=== PATIENT | female | born 1970 | race Caucasian/White ===

== ENCOUNTER 2016-06-17 21:14 | Emergency (ER) | payer OTHER ==
[~2016-06-17] VITALS: Ht 172.7 cm; Wt 56.9 kg
[2016-06-17 21:15] VITALS: BP 137/84
== END 2016-06-17 22:10 | disposition home or self-care (01) ==
LOC: ED 22:05
DX: L03.011 Cellulitis of right finger (principal)
CPT/HCPCS: 99283

== ENCOUNTER 2017-05-20 10:20 | Inpatient (IN) | payer OTHER ==
[~2017-05-20] VITALS: Ht 172.7 cm; Wt 58.0 kg
[2017-05-20 11:34] LABS: BASOPHILS # (AUTO) 0.04 x10^3/uL (0-0.1); BASOPHILS % (AUTO) 1 % (0-1); EOSINOPHILS # (AUTO) 0.08 x10^3/uL (0-0.4); EOSINOPHILS % (AUTO) 1 % (1-7); LYMPHOCYTES # (AUTO) 2.16 x10^3/uL (1-3.4); LYMPHOCYTES % (AUTO) 38 % (22-44); MD NO; MEAN CORPUSCULAR HEMOGLOBIN 33.1 pg (27.0-34.8); MEAN CORPUSCULAR HGB CONC 34.3 g/dL (32.4-35.8); MEAN CORPUSCULAR VOLUME 96.5 fL (80-100); MEAN PLATELET VOLUME 9.6 fL (7.4-10.4); MONOCYTES # (AUTO) 0.46 x10^3/uL (0.2-0.8); MONOCYTES % (AUTO) 8 % (2-9); NEUTROPHILS # (AUTO) 2.98 x10^3/uL (1.8-6.8); NEUTROPHILS % (AUTO) 52 % (42-75); PLATELET COUNT 228 x10^3/uL (130-400); RED BLOOD COUNT 4.27 x10^6/uL (3.82-5.3); RED CELL DISTRIBUTION WIDTH 13.3 % (9.6-15.2)
[2017-05-20 11:46] LABS: ALBUMIN 3.8 g/dL (3.4-5.0); ANION GAP 7 mmol/L (5-15); CALCIUM 8.8 mg/dL (8.5-10.1); CHLORIDE 108 mmol/L (98-107); CREATININE 0.89 mg/dL (0.55-1.02)
[2017-05-20 11:49] LABS: TROPONIN I < 0.015 ng/mL (0.000-0.045)
[2017-05-20] MEDS ORDERED: SODIUM CHLORIDE 0.9% 1,000ML IVBOLUS ONE (12:00)
[2017-05-20] MEDS ORDERED: SODIUM CHLORIDE FLUSH 10ML SYR IVF ONE (12:00)
[2017-05-20] MEDS ORDERED: DONE10TA7 PO (12:53)
[2017-05-20] MEDS ORDERED: CLON0.5T PO (12:53)
[2017-05-20] MEDS ORDERED: AMIT25TA PO (12:53)
[2017-05-20] MEDS ORDERED: OMNIPAQUE 350 MG/ML, 100ML BOTTLE ONE (13:22)
[2017-05-20] MEDS ORDERED: ASPIRIN 81 MG TABLET CHEW PO ONE (14:00)
[2017-05-20] MEDS ORDERED: HYDROcodone/APAP 5/325 TABLET PO PRN (14:30)
[2017-05-20] MEDS ORDERED: POLYETHYLENE GLYCOL 17 GM PACKET PO PRN (14:30)
[2017-05-20] MEDS ORDERED: DOCUSATE 100 MG CAPSULE PO PRN (14:30)
[2017-05-20] MEDS ORDERED: ACETAMINOPHEN 325 MG TABLET PO PRN (14:30)
[2017-05-20] MEDS ORDERED: ONDANSETRON 2MG/ML, 2ML IVPush PRN (14:30)
[2017-05-20] MEDS ORDERED: morphine SULFATE 10 MG/ML, 1ML IVPush PRN (14:30)
[2017-05-20 16:22] VITALS: BP 93/65
[2017-05-20] MEDS: ENOXAPARIN 40 MG/0.4 ML SQ SCH (17:04)
[2017-05-20] MEDS: SODIUM CHLORIDE FLUSH 10ML SYR IVF SCH (21:00)
[2017-05-20] MEDS ORDERED: AMITRIPTYLINE 25 MG TABLET PO SCH (21:00)
[2017-05-20 22:00] VITALS: BP 93/58
[2017-05-21 02:19] VITALS: BP 87/50
[2017-05-21] MEDS: SODIUM CHLORIDE FLUSH 10ML SYR IVF SCH (07:27)
[2017-05-21 07:30] VITALS: BP 93/55
[2017-05-21] MEDS ORDERED: DONEPEZIL 10 MG TABLET PO SCH (09:00)
[2017-05-21 13:50] VITALS: BP 90/53
[2017-05-21] MEDS: ENOXAPARIN 40 MG/0.4 ML SQ SCH (14:30)
== END 2017-05-21 18:40 | disposition home or self-care (01) | DRG 74 ==
LOC: ED 12:23 → EDIP 12:24 → ED 12:36 → 5SO 16:07
PROVIDERS: ADMIT Urology; ATTEND Family Medicine
DX: G90.9 Disorder of the autonomic nervous system, unspecified (principal); I48.91 Unspecified atrial fibrillation; Z96.651 Presence of right artificial knee joint; M06.9 Rheumatoid arthritis, unspecified; Z79.82 Long term (current) use of aspirin; Z82.49 Family history of ischemic heart disease and other diseases of the circulatory system
CPT/HCPCS: 36415; 71045; 71275; 80048; 82040; 83880; 84443; 84484; 85025; 93005; 93306; 99285; J1650; Q9967; J7030

== ENCOUNTER → 2017-08-06 | Outpatient (CLI) | payer OTHER ==
[~2017-08-06] MED LIST: AMIT25TA PO; CLON0.5T PO; DONE10TA7 PO
== END | disposition home or self-care (01) ==
LOC: CFH 14:31
PROVIDERS: ATTEND Registered Nurse
DX: M35.01 Sjogren syndrome with keratoconjunctivitis (principal); G43.909 Migraine, unspecified, not intractable, without status migrainosus
CPT/HCPCS: 70544

== ENCOUNTER 2017-09-23 12:57 | Emergency (ER) | payer OTHER ==
[~2017-09-23] VITALS: Ht 172.7 cm; Wt 55.5 kg
[2017-09-23 14:07] LABS: BASOPHILS # (AUTO) 0.03 x10^3/uL (0-0.1); BASOPHILS % (AUTO) 1 % (0-1); EOSINOPHILS # (AUTO) 0.11 x10^3/uL (0-0.4); EOSINOPHILS % (AUTO) 2 % (1-7); LYMPHOCYTES # (AUTO) 2.11 x10^3/uL (1-3.4); LYMPHOCYTES % (AUTO) 39 % (22-44); MD NO; MEAN CORPUSCULAR HEMOGLOBIN 32.2 pg (27.0-34.8); MEAN CORPUSCULAR HGB CONC 33.5 g/dL (32.4-35.8); MEAN PLATELET VOLUME 10.1 fL (7.4-10.4); MONOCYTES # (AUTO) 0.38 x10^3/uL (0.2-0.8); MONOCYTES % (AUTO) 7 % (2-9); NEUTROPHILS # (AUTO) 2.73 x10^3/uL (1.8-6.8); NEUTROPHILS % (AUTO) 51 % (42-75); PLATELET COUNT 188 x10^3/uL (130-400); RED BLOOD COUNT 4.02 x10^6/uL (3.82-5.3); RED CELL DISTRIBUTION WIDTH 13.4 % (9.6-15.2)
[2017-09-23 14:19] LABS: ANION GAP 6 mmol/L (5-15); CALCIUM 8.7 mg/dL (8.5-10.1); CHLORIDE 110 mmol/L (98-107); CREATININE 0.78 mg/dL (0.55-1.02)
[2017-09-23 14:33] LABS: MICROSCOPIC NOT IND
[2017-09-23 14:37] LABS: CULTURE INDICATED? NO
[2017-09-23 15:44] VITALS: BP 121/62
== END 2017-09-23 15:46 | disposition home or self-care (01) ==
LOC: ED 15:40
DX: N81.10 Cystocele, unspecified (principal)
CPT/HCPCS: 36415; 80048; 81003; 82040; 84703; 85025; 99284

== ENCOUNTER 2018-05-21 10:43 | Emergency (ER) | payer BC, OTHER ==
[~2018-05-21] VITALS: Ht 172.7 cm; Wt 53.1 kg
[2018-05-21 11:34] LABS: BASOPHILS # (AUTO) 0.03 x10^3/uL (0-0.1); BASOPHILS % (AUTO) 1 % (0-1); EOSINOPHILS # (AUTO) 0.08 x10^3/uL (0-0.4); EOSINOPHILS % (AUTO) 2 % (1-7); LYMPHOCYTES # (AUTO) 1.87 x10^3/uL (1-3.4); LYMPHOCYTES % (AUTO) 41 % (22-44); MD NO; MEAN CORPUSCULAR HEMOGLOBIN 33.2 pg (27.0-34.8); MEAN CORPUSCULAR HGB CONC 34.4 g/dL (32.4-35.8); MEAN CORPUSCULAR VOLUME 96.4 fL (80-100); MEAN PLATELET VOLUME 9.7 fL (7.4-10.4); MONOCYTES # (AUTO) 0.35 x10^3/uL (0.2-0.8); MONOCYTES % (AUTO) 8 % (2-9); NEUTROPHILS % (AUTO) 49 % (42-75); PLATELET COUNT 213 x10^3/uL (130-400); RED BLOOD COUNT 3.98 x10^6/uL (3.82-5.3); RED CELL DISTRIBUTION WIDTH 13.7 % (9.6-15.2)
--- NOTE | 2018-05-21 11:34 | NUR ---
Pt presents to ED for new neuro sx. Pt states her speech as been off since saturday. Pt states difficulty speaking and that those who know her say her speech is different. Pt also states her handwriting is not her normal writing. Pt states hx of complex migrains but these are different. Pt also states has had palpitations last few months and has been seen for that.
[2018-05-21 11:43] LABS: ALBUMIN 3.8 g/dL (3.4-5.0); ANION GAP 6 mmol/L (5-15); CALCIUM 8.9 mg/dL (8.5-10.1); CHLORIDE 110 mmol/L (98-107)
[2018-05-21] MEDS ORDERED: EREN70AU SQ (11:51)
[2018-05-21] MEDS ORDERED: KETO1SPR NAS (11:51)
[2018-05-21] MEDS ORDERED: SUMA1TAB PO (11:51)
[2018-05-21 12:52] VITALS: BP 114/57
== END 2018-05-21 12:54 | disposition home or self-care (01) ==
LOC: ED 12:41
DX: G43.909 Migraine, unspecified, not intractable, without status migrainosus (principal); R47.9 Unspecified speech disturbances
CPT/HCPCS: 36415; 70551; 80048; 82040; 85025; 99284

== ENCOUNTER → 2018-06-22 | Outpatient (CLI) | payer BC ==
[~2018-06-22] MED LIST changes: +EREN70AU SQ; +KETO1SPR NAS; +SUMA1TAB PO
== END | disposition home or self-care (01) ==
LOC: CARD 08:23
PROVIDERS: ATTEND Registered Nurse
DX: R41.0 Disorientation, unspecified (principal); G43.909 Migraine, unspecified, not intractable, without status migrainosus
CPT/HCPCS: 95819

== ENCOUNTER 2018-07-29 05:59 | Day surgery (SDC) | payer BC ==
[~2018-07-29] VITALS: Ht 172.7 cm; Wt 52.7 kg
[2018-07-29] MEDS ORDERED: SODIUM CHLORIDE 0.9% 1,000 ML IV SCH (06:30)
[2018-07-29] MEDS ORDERED: HYDR-3241 PO (06:33)
[2018-07-29] MEDS ORDERED: Lamictal PO (06:33)
[2018-07-29] MEDS ORDERED: PREG50CA PO (06:33)
[2018-07-29] MEDS ORDERED: RIZA10TA20 PO (06:33)
[2018-07-29 06:40] VITALS: BP 110/51
[2018-07-29] MEDS ORDERED: PROPOFOL 10 MG/ML, 20ML ONE (07:30)
== END 2018-07-29 09:25 | disposition home or self-care (01) ==
LOC: CACL 05:59
PROVIDERS: ATTEND Internal Medicine Cardiovascular Disease
DX: R00.2 Palpitations (principal); R41.0 Disorientation, unspecified; G43.909 Migraine, unspecified, not intractable, without status migrainosus
CPT/HCPCS: 93312; 93321; 93325; J2704

== ENCOUNTER → 2020-05-12 | Outpatient (CLI) | payer BC ==
[~2020-05-12] MED LIST changes: +HYDR-3241 PO; +Lamictal PO; +OMNIPAQUE 350 MG/ML, 100ML BOTTLE ONE; +PREG50CA PO; +RIZA10TA20 PO; -SUMA1TAB PO; +SUMA1TAB12 PO
== END | disposition home or self-care (01) ==
LOC: CFH 13:19
PROVIDERS: ATTEND Family Medicine
DX: K76.0 Fatty (change of) liver, not elsewhere classified (principal); K92.1 Melena
CPT/HCPCS: 74177; Q9967

== ENCOUNTER 2020-12-07 08:08 | Emergency (ER) | payer BC ==
[~2020-12-07] VITALS: Ht 172.7 cm; Wt 54.7 kg
[2020-12-07 11:10] VITALS: BP 128/74
== END 2020-12-07 11:13 | disposition home or self-care (01) ==
LOC: ED 08:16
DX: R19.7 Diarrhea, unspecified (principal); R10.9 Unspecified abdominal pain; J02.9 Acute pharyngitis, unspecified; G43.909 Migraine, unspecified, not intractable, without status migrainosus; Z87.891 Personal history of nicotine dependence
CPT/HCPCS: 36415; 74021; 80053; 84703; 85025; 87324; 89055; 96372; 96374; 99284; J0500; J2405; J7030